=== PATIENT | female | born 1990 | race Caucasian/White ===

== ENCOUNTER 2016-08-19 14:43 | Emergency (ER) | payer OTHER ==
[2016-08-19 15:41] LABS: URINE BILIRUBIN NEGATIVE (NEGATIVE); URINE BLOOD NEGATIVE (NEGATIVE); URINE GLUCOSE (UA) NORMAL (NORMAL); URINE KETONE TRACE (NEGATIVE); URINE LEUKOCYTE ESTERASE TRACE (NEGATIVE); URINE NITRATE NEGATIVE (NEGATIVE); URINE PROTEIN NEGATIVE (NEGATIVE); UROBILINOGEN NORMAL mg/dL (<1.0)
[2016-08-19 15:52] LABS: URINE RBC 0-5 /[HPF] (0-2); URINE SQUAMOUS EPITHELIAL CELL >20 /[HPF] (NONE SEEN); URINE WBC 0-5 /[HPF] (0-5)
[2016-08-19 15:53] LABS: URINE BACTERIA 1+ (NONE SEEN)
== END 2016-08-19 17:29 | disposition home or self-care (01) ==
LOC: ER 14:43
PROVIDERS: Internal Medicine
DX: R30.0 Dysuria (principal); Z32.01 Encounter for pregnancy test, result positive; F17.210 Nicotine dependence, cigarettes, uncomplicated; Z88.1 Allergy status to other antibiotic agents; Z88.8 Allergy status to other drugs, medicaments and biological substances
CPT/HCPCS: 76856; 81001; 81025; 99283-25